=== PATIENT | female | born 1950 ===

== ENCOUNTER 2021-04-05 11:36 | Outpatient (CLI) | payer OTHER | END 2021-04-09 10:00 | disposition home or self-care (01) | LOC: RAD 11:36 | DX: K59.09 Other constipation (principal); K57.30 Diverticulosis of large intestine without perforation or abscess without bleeding ==

== ENCOUNTER 2021-06-30 10:30 | Inpatient (IN) | payer OTHER ==
[~2021-06-30] VITALS: Ht 149.9 cm; Wt 55.3 kg
[2021-06-30] MEDS ORDERED: NIFEDIPINE20 MG PO (13:54)
[2021-06-30] MEDS ORDERED: SYNTHROID75 MCG PO (13:54)
[2021-06-30] MEDS ORDERED: VALSARTAN-HCTZ1 EAC1 PO (13:54)
[2021-06-30] MEDS ORDERED: PROTONIX40 MG PO (13:54)
[2021-07-06] MEDS ORDERED: NIFEDIPINE ER30 M1 (10:08)
[2021-07-06] MEDS ORDERED: FAMOTIDINE20 MG (10:08)
[2021-07-06] MEDS ORDERED: TIMOLOL MALEATE5 M4 (10:08)
[2021-07-09] MEDS ORDERED: KLOR-CON 1010 MEQ PO (12:04)
[2021-07-09] MEDS ORDERED: PERCOCET 5-3251 EACH PO (12:04)
== END 2021-07-09 15:10 | disposition home or self-care (01) | DRG 331 ==
LOC: O/R 07-06 05:43 → SURH 07-06 06:30
PROVIDERS: ADMIT Surgery; ATTEND Surgery
PROC: 0DBN4ZZ Excision of Sigmoid Colon, Percutaneous Endoscopic Approach (ICD-10-PCS; 2021-07-06)
PROC: 0DJD8ZZ Inspection of Lower Intestinal Tract, Via Natural or Artificial Opening Endoscopic (ICD-10-PCS; 2021-07-06)
PROC: 3E0F7SF Introduction of Other Gas into Respiratory Tract, Via Natural or Artificial Opening (ICD-10-PCS; 2021-07-06)
PROC: 0DBP4ZZ Excision of Rectum, Percutaneous Endoscopic Approach (ICD-10-PCS; principal; 2021-07-06 06:30)
DX: K57.30 Diverticulosis of large intestine without perforation or abscess without bleeding (principal); K58.1 Irritable bowel syndrome with constipation; N73.6 Female pelvic peritoneal adhesions (postinfective); K59.02 Outlet dysfunction constipation